=== PATIENT | male | born 1995 | race Caucasian/White ===

== ENCOUNTER 2021-12-04 13:02 | Emergency (ER) | payer SELFPAY ==
[~2021-12-04] VITALS: Ht 180.3 cm; Wt 130.0 kg
[2021-12-04] MEDS ORDERED: LORAZEPAM 1MG TABLET PO ONE (13:45)
[2021-12-04] MEDS ORDERED: SODIUM CHLORIDE 0.9% 1,000 ML IV ONE (13:45)
[2021-12-04 13:50] LABS: BASOPHILS % 0.5 % (0.0-2.0); HEMATOCRIT. 44.9 % (42.0-52.0); HEMOGLOBIN. 15.6 g/dL (14.0-18.0); LYMPHOCYTES % 14.7 % (20.0-50.0); MEAN CORPUSCULAR VOLUME 92.4 fL (80.0-94.0); MEAN PLATELET VOLUME 7.9 fl (7.4-10.4); MONOCYTES % 5.6 % (2.0-8.0); NEUTROPHILS % 78.2 % (40.0-76.0); PLATELET 298 x1000/uL (130-400); RED BLOOD CELL COUNT 4.86 mill/uL (4.7-6.1); RED CELL DISTRIBUTION WIDTH 13.1 % (11.6-14.6)
[2021-12-04 14:01] LABS: CHLORIDE 105 mEq/L (98-107)
[2021-12-04] MEDS ORDERED: LORA-250 MT ×3 (14:38→14:46)
[2021-12-04 14:50] VITALS: BP 110/72
== END 2021-12-04 16:13 | disposition home or self-care (01) ==
LOC: ER 13:02
DX: F41.9 Anxiety disorder, unspecified (principal); F17.210 Nicotine dependence, cigarettes, uncomplicated
CPT/HCPCS: 36415; 80053; 84484; 85025; 99283; 99406; J7030